=== PATIENT | male | born 1955 | race Caucasian/White ===

== ENCOUNTER 2017-01-21 03:48 | Emergency (ER) | payer OTHER ==
[~2017-01-21] VITALS: Ht 170.2 cm; Wt 88.0 kg
[2017-01-21 03:55] VITALS: TEMP 36.4; Ht 170.2 cm; Wt 88.0 kg
[2017-01-21] MEDS ORDERED: B/P MED PO (04:15)
[2017-01-21] MEDS ORDERED: ONDANSETRON INJ 2 MG/ML 2 ML VIAL IV STA (04:21)
--- NOTE | 2017-01-21 04:23 | EMERGENCY ROOM VISIT NOTE ---
History Report prepared by Ray: Tracy Bernard Under the Supervision of: Dr. Sami Mckenzie M.D. First contact with patient: 04:13 Chief Complaint: VOMITING Stated Complaint: VOMITING Nursing Triage Summary: vomitting intermittently since November History of Present Illness The patient is a 61 year old male who presents to the Emergency Room with complaints of intermittent vomiting beginning 2 months ago. He states that he has been throwing up every Monday. He complains of lower abdominal pain and lower right back pain. The patient denies having a rash. He reports that drinks 3-5 beers every day, but that he usually drinks heavier on the weekend. He denies that he experiences withdrawal, and also denies a history of abdominal surgery. Source of History: patient Onset: 2 months ago Position: other (global) Quality: other (vomiting) Timing: intermittent Associated Symptoms: + abdominal pain, + back pain, No rash Review of Systems See HPI for pertinent positives & negatives. A total of 10 systems reviewed and were otherwise negative. Past Medical & Surgical Medical Problems: (1) Aneurysm Family History FHx: cancer FHx: heart disease Hypertension Social History Smoking Status: Never Smoker Alcohol Use: heavy Current/Historical Medications Scheduled Omeprazole (Omeprazole), 1 TAB PO DIRECTED Ondasetron Odt (Zofran Odt), 4-8 MG SL Q6H [B/P Med], Unknown Dose PO DAILY Allergies Coded Allergies: No Known Allergies (Unverified , 01/21/17) Physical Exam Vital Signs Date Time Temp Pulse Resp B/P (MAP) Pulse Ox O2 Delivery O2 Flow Rate FiO2 01/21/17 07:24 66 18 110/71 98 01/21/17 06:17 64 18 108/74 97 Nasal Cannula 2.0 01/21/17 05:24 66 18 109/69 91 Room Air 01/21/17 04:48 61 18 106/63 94 Room Air 01/21/17 03:55 36.4 71 22 152/98 95 Room Air Physical Exam GENERAL: Patient is uncomfortable, nauseous, mildly intoxicated, and smells of alcohol HEENT: No acute trauma, normocephalic atraumatic, mucous membranes moist, no nasal congestion, no scleral icterus. NECK: No stridor, no adenopathy, no meningismus, trachea is midline. LUNGS: No dyspnea. Clear to auscultation and equal bilaterally. No wheeze, no rhonchi. HEART: Regular rate and rhythm. No murmurs, rubs, gallops appreciated. ABDOMEN: Soft, epigastric tenderness to palpation, bowel sounds positive, no masses appreciated, no peritonitis. BACK: No midline tenderness, no CVA tenderness EXTREMITIES: Normal motion all extremities, no cyanosis, no edema. NEUROLOGIC: Alert and oriented, no acute motor or sensory deficits, no focal weakness, cranial nerves grossly intact. SKIN: No rash, no jaundice, no diaphoresis. Medical Decision & Procedures Laboratory Results 01/21/17 04:40 Red Blood Count 4.18, Mean Corpuscular Volume 89.7, Mean Corpuscular Hemoglobin 31.1, Mean Corpuscular Hemoglobin Concent 34.7, Mean Platelet Volume 10.2, Neutrophils (%) (Auto) 73.6, Lymphocytes (%) (Auto) 17.0, Monocytes (%) (Auto) 8.4, Eosinophils (%) (Auto) 0.8, Basophils (%) (Auto) 0.1, Neutrophils # (Auto) 5.71, Lymphocytes # (Auto) 1.32, Monocytes # (Auto) 0.65, Eosinophils # (Auto) 0.06, Basophils # (Auto) 0.01 01/21/17 04:40 Test 01/21/17 04:40 01/21/17 04:45 01/21/17 06:45 White Blood Count 7.76 K/uL (4.8-10.8) Red Blood Count 4.18 M/uL (4.7-6.1) Hemoglobin 13.0 g/dL (14.0-18.0) Hematocrit 37.5 % (42-52) Mean Corpuscular Volume 89.7 fL (80-100) Mean Corpuscular Hemoglobin 31.1 pg (25-34) Mean Corpuscular Hemoglobin Concent 34.7 g/dl (32-36) Platelet Count 167 K/uL (130-400) Mean Platelet Volume 10.2 fL (7.4-10.4) Neutrophils (%) (Auto) 73.6 % Lymphocytes (%) (Auto) 17.0 % Monocytes (%) (Auto) 8.4 % Eosinophils (%) (Auto) 0.8 % Basophils (%) (Auto) 0.1 % Neutrophils # (Auto) 5.71 K/uL (1.4-6.5) Lymphocytes # (Auto) 1.32 K/uL (1.2-3.4) Monocytes # (Auto) 0.65 K/uL (0.11-0.59) Eosinophils # (Auto) 0.06 K/uL (0-0.5) Basophils # (Auto) 0.01 K/uL (0-0.2) RDW Standard Deviation 41.0 fL (36.4-46.3) RDW Coefficient of Variation 12.5 % (11.5-14.5) Immature Granulocyte % (Auto) 0.1 % Immature Granulocyte # (Auto) 0.01 K/uL (0.00-0.02) Est Creatinine Clear Calc Drug Dose 94.5 ml/min Estimated GFR () 108.2 Estimated GFR (Non- 93.4 BUN/Creatinine Ratio 22.2 (10-20) Calcium Level 8.3 mg/dl (8.5-10.1) Total Bilirubin 0.2 mg/dl (0.2-1) Direct Bilirubin < 0.1 mg/dl (0-0.2) Aspartate Amino Transf (AST/SGOT) 15 U/L (15-37) Alanine Aminotransferase (ALT/SGPT) 28 U/L (12-78) Alkaline Phosphatase 57 U/L (45-117) Total Protein 6.7 gm/dl (6.4-8.2) Albumin 3.7 gm/dl (3.4-5.0) Lipase 260 U/L (73-393) Bedside Hemoglobin 12.6 g/dl (14.0-18.0) Bedside Hematocrit 37 % (42-52) Bedside Sodium 139 mEq/L (135-144) Bedside Potassium 3.8 mEq/L (3.3-5.0) Bedside Chloride 104 mEq/L (101-112) Bedside Total CO2 23 mEq/l (24-31) Anion Gap 17.0 mmol/L (16-25) Bedside Blood Urea Nitrogen 19 mg/dl (7-18) Bedside Creatinine 1.0 mg/dl (0.6-1.3) Bedside Glucose (other) 114 mg/dl (70-99) Bedside Ionized Calcium (Janett) 1.21 mmol/l (1.12-1.32) Urine Color YELLOW Urine Appearance CLEAR (CLEAR) Urine pH 5.0 (4.5-7.5) Urine Specific [place] 1.023 (1.000-1.030) Urine Protein NEG (NEG) Urine Glucose (UA) NEG (NEG) Urine Ketones NEG (NEG) Urine Occult Blood 1+ (NEG) Urine Nitrite NEG (NEG) Urine Bilirubin NEG (NEG) Urine Urobilinogen NEG (NEG) Urine Leukocyte Esterase NEG (NEG) Urine WBC (Auto) 1-5 /hpf (0-5) Urine RBC (Auto) 0-4 /hpf (0-4) Urine Hyaline Casts (Auto) 0 /lpf (0-5) Urine Epithelial Cells (Auto) 0-5 /lpf (0-5) Urine Bacteria (Auto) NEG (NEG) Laboratory results as reviewed by me. Medications Administered Medications (Trade) Dose Ordered Sig/Matias Route Start Time Stop Time Status Last Admin Dose Admin Multivitamins 10 ml/Thiamine HCl 100 mg/Folic Acid 1 mg/Sodium Chloride 1,011.2 ml @ 500 mls/ hr Q2H2M ONCE IV 01/21/17 04:30 01/21/17 06:31 DC 01/21/17 05:18 500 MLS/HR Ondansetron HCl (Zofran Inj) 4 mg NOW STAT IV 01/21/17 04:21 01/21/17 04:23 DC 01/21/17 04:42 4 MG Morphine Sulfate (MoRPHine SULFATE INJ) 6 mg NOW STAT IV 01/21/17 04:28 01/21/17 04:29 DC 01/21/17 04:42 6 MG Ranitidine HCl (zANTac SYRUP) 150 mg NOW ONCE PO 01/21/17 06:00 01/21/17 06:01 DC 01/21/17 05:53 150 MG Al Hydroxide/Mg Hydroxide (Maalox Susp) 30 ml STK-MED ONCE .ROUTE 01/21/17 05:51 01/21/17 05:52 DC 01/21/17 05:54 30 ML Lidocaine HCl (Viscous Lidocaine 2% Soln) 20 ml STK-MED ONCE .ROUTE 01/21/17 05:52 01/21/17 05:53 DC 01/21/17 05:53 20 ML ED Course 0417: The patient was evaluated in room A9A. A complete history and physical exam was performed. 0421: Ordered Zofran Inj 4 mg IV. 0428: Ordered Morphine Sulfate 6 mg IV. 0430: Ordered Multivitamins 10 ml/Thiamine HCl 100 mg / Folic Acid 1 mg/Sodium Chloride 1,011.2 ml @ 500 mls/hr IV. Medical Decision Differential: Appendicitis, Diverticulitis, PUD/Gastritis, Biliary Pathology, UTI, Pyelonephritis, Renal Colic, Bowel Obstruction, Aortic Pathology, Acute Coronary Syndrome, amongst other pathologies entertained. 61 yr old male with 2 month history of periodic diffuse though mostly epigastric abdominal pain radiating to back which when really bad he vomits. Notes worse on Monday evenings after drinking heavily on Mon/Mon. Chronic Etoh use though no history of withdrawal. Notes usually eats well. Labs unremarkable. No chest, shob, nor other ACS symptoms. With symptoms ongoing for so long felt that imaging necessary which was fortunately negative. CT with read of contrast most likely in ureters. Just 1+ blood in urine and thus I do not feel this is diffuse ureteral stones give no history of them and no reported hydro. I suspect main issue is gastritis/ulcer related given daily Etoh usage. Reviewed instructions regarding this, will start Omeprazole and have stressed PCP follow up. RTED if worsening or other concerns. Medication Reconcilliation Current Medication List: was personally reviewed by me Blood Pressure Screening Patient's blood pressure: Normal blood pressure Impression Primary Impression: Vomiting Additional Impression: Abdominal pain, diffuse Scribe Attestation The scribe's documentation has been prepared under my direction and personally reviewed by me in its entirety. I confirm that the note above accurately reflects all work, treatment, procedures, and medical decision making performed by me. Departure Information Dispostion Home / Self-Care Prescriptions Omeprazole (OMEPRAZOLE) 20 Mg Tab 1 TAB PO DIRECTED, #60 TAB 3 Refills Take twice daily for 10 days, then once daily. Prov: Sami Mckenzie M.D. 01/21/17 Ondasetron Odt (ZOFRAN ODT) 4 Mg Tab 4-8 MG SL Q6H for Nausea, #20 TAB Prov: Sami Mckenzie M.D. 01/21/17 Referrals Primary Care Provider Patient Instructions Abdominal Pain - [facility], [facility] Additional Instructions It is unclear exact cause of your pain though likely it is secondary to Gastric ulcer or irritation. Avoid spicy foods, alcohol, tomato based foods and caffeine. Return if worsening pain, fevers, chest pain, or other concerns. We are always here to help. Please follow up with your primary care provider to discuss further testing, including repeat Urine testing, and possible further Gallbladder testing and or construction checker evaluation. You do have blood in your urine, though otherwise there is no clear evidence of urinary infection nor kidney stone. Problem Qualifiers
[2017-01-21] MEDS ORDERED: MoRPHine SULFATE 10 MG/ML CARP/VIAL IV STA (04:28)
[2017-01-21] MEDS ORDERED: OPTIRAY 320 IV PRN (04:30)
[2017-01-21] MEDS ORDERED: MULTI-VITAMIN INFUSION INJ 10 ML, THIAMINE HCL INJ 100 MG, FoLIC ACID INJ 1 MG in SODIU... IV ONE (04:30)
[2017-01-21 04:58] LABS: ISTAT HEMOGLOBIN 12.6 g/dl (14.0-18.0); ISTAT IONIZED CALCIUM 1.21 mmol/l (1.12-1.32)
[2017-01-21 05:07] LABS: BASO % 0.1 %; BASO ABS # 0.01 K/uL (0-0.2); COMPLETE YES; EOS % 0.8 %; HEMATOCRIT 37.5 % (42-52); IG% 0.1 %; LYMPH ABS # 1.32 K/uL (1.2-3.4); MEAN CELL VOLUME 89.7 fL (80-100); MEAN CORPUSCULAR HEMOGLOBIN 31.1 pg (25-34); MEAN CORPUSCULAR HGB CONC 34.7 g/dl (32-36); MEAN PLATELET VOLUME 10.2 fL (7.4-10.4); MONO % 8.4 %; NEUT % 73.6 %; PLATELET COUNT 167 K/uL (130-400); RED BLOOD COUNT 4.18 M/uL (4.7-6.1); WHITE BLOOD COUNT 7.76 K/uL (4.8-10.8)
[2017-01-21 05:24] LABS: ALT/SGPT 28 U/L (12-78); AST/SGOT 15 U/L (15-37); BLOOD UREA NITROGEN 20 mg/dl (7-18); BUN/CREATININE RATIO 22.2 (10-20); CALCIUM 8.3 mg/dl (8.5-10.1); CARBON DIOXIDE 23 mmol/L (21-32); CHLORIDE 107 mmol/L (98-107); CREATININE 0.88 mg/dl (0.60-1.40); GLUCOSE 114 mg/dl (70-99); POTASSIUM 3.8 mmol/L (3.5-5.1); SODIUM 139 mmol/L (136-145)
[2017-01-21 05:27] LABS: ALKALINE PHOSPHATASE 57 U/L (45-117)
[2017-01-21] MEDS ORDERED: GI COCKTAIL PO STA (05:49)
[2017-01-21] MEDS ORDERED: ALUMINUM/MAGNESIUM SUSP 30 ML UDC ONE (05:51)
[2017-01-21] MEDS ORDERED: LIDOCAINE HCL 2% VISC SOLN 20 ML UDC ONE (05:52)
[2017-01-21] MEDS ORDERED: RANITIDINE HCL SYRUP 150 MG/10 ML UDC PO ONE (06:00)
[2017-01-21] MEDS ORDERED: OMEP20TA PO (06:47)
[2017-01-21] MEDS ORDERED: ONDA4TAB10 SL (06:47)
[2017-01-21 06:55] LABS: URINE APPEARANCE CLEAR (CLEAR); URINE BILIRUBIN NEG (NEG); URINE COLOR YELLOW; URINE EPITHELIAL CELL AUTO 0-5 /lpf (0-5); URINE NITRITE NEG (NEG); URINE SPECIFIC GRAVITY 1.023 (1.000-1.030); UROBILINOGEN NEG (NEG); ZZUR CULT IF INDIC CLEAN CATCH NO
[2017-01-21 06:58] LABS: MANUAL MICROSCOPIC REQUIRED? NO; REVIEW REQ? NO
[2017-01-21 07:24] VITALS: BP 110/71; PULSE 66; O2SAT 98
--- NOTE | 2017-01-21 09:40 | DIAGNOSTIC IMAGING REPORT ---
ABD/PELVIS IV CONTRAST ONLY HISTORY: 61 years-old Male epigastric pain radiating to back acute epigastric abdominal pain with radiation to the back. COMPARISON: None available TECHNIQUE: Multiple axial CT images of the abdomen and pelvis were obtained following the intravenous administration of 94 mL Optiray 320. A dose lowering technique was used consistent with the principals of LILIAN. FINDINGS: Mild dependent bibasilar atelectasis. There is no pneumoperitoneum. Coronary arterial calcifications are noted. The heart is mildly enlarged. The liver, gallbladder, spleen, pancreas and adrenal glands are within normal limits. Renal sinus cysts are seen on the left. Scattered low attenuating lesions of the right kidney parenchyma are too small to characterize however suggest cysts. Nonspecific mild right greater than left perinephric inflammatory stranding is noted. There is slightly decreased contrast enhancement of the right kidney compared to the left on this delayed phase. External renal pelvis is present on the right with mixing of contrast and urine within the right renal pelvis. There is mild prominence of the mid to distal right ureter with mild surrounding stranding. No obstructing stone or mass identified. Increased attenuation within the region of the distal left ureter and left UVJ suggests contrast. There is circumferential wall thickening of the bladder. Prostate is unremarkable. Small fat filled left inguinal hernia. Mild arthritic carotid plaquing of the abdominal aorta. No bulky adenopathy. Moderate sized duodenal diverticulum. No bowel obstruction. Colonic diverticulosis without diverticulitis. Transverse colon is collapsed without inflammatory changes identified. The appendix appears normal. Soft tissues are unremarkable. Bones appear intact. Multilevel severe facet arthropathy of the lower lumbar spine. Severe intervertebral disc space narrowing at L5-S1. IMPRESSION: 1. Mildly decreased contrast enhancement of the right kidney with associated perinephric inflammatory stranding of the kidney and right ureter is suspicious for polynephritis with ascending ureteritis. Wall thickening of the urinary bladder is suspicious for cystitis. Correlate with urinalysis. 2. No obstructing renal calculi identified. 3. Normal appendix. 4. Colonic diverticulosis without diverticulitis. The above report was generated using voice recognition software. It may contain grammatical, syntax or spelling errors. Electronically signed by: Norberto Shaikh M.D. 01/21/2017 9:38 AM Dictated Date/Time: 01/21/2017 9:32 AM
== END 2017-01-21 07:25 | disposition home or self-care (01) ==
LOC: C.EDB 03:50 → C.EDA 07:25
DX: R11.10 Vomiting, unspecified (principal); R10.9 Unspecified abdominal pain; Z80.9 Family history of malignant neoplasm, unspecified; Z82.49 Family history of ischemic heart disease and other diseases of the circulatory system; Z79.899 Other long term (current) drug therapy

== ENCOUNTER → 2017-02-23 | Outpatient (CLI) | payer OTHER ==
[~2017-02-23] MED LIST: B/P MED PO; OMEP20TA PO; ONDA4TAB10 SL; SINCALIDE INJ 1.8 MCG in SODIUM CHLORIDE 0.9% 100ML 100 ML IV SCH
--- NOTE | 2017-02-23 10:08 | DIAGNOSTIC IMAGING REPORT ---
HEPATOBILIARY EF IMAGING CLINICAL HISTORY: 61 years-old Male with R10.11. Acute epigastric abdominal pain TECHNIQUE: Following the intravenous administration of 5.3 mCi of technetium-99m Choletec, sequential abdominal images were obtained. In order to evaluate the contractile response of the gallbladder, 1.8 mcg of Kinevac was administered by slow intravenous infusion over 30 min starting approximately 60 min after the administration of the radiopharmaceutical. Sequential imaging was continued for 45 min after the start of the Kinevac infusion. COMPARISON: CT abdomen and pelvis 01/21/2017 FINDINGS: There is prompt, uniform accumulation of the tracer by the liver. There is normal filling of the intrahepatic ducts, common bile duct and gallbladder and normal excretion of the tracer into the duodenum. There is adequate contraction of the gallbladder. The calculated gallbladder ejection fraction is 86% (normal >40%). There is no significant enterogastric reflux. IMPRESSION: 1. Normal contractile response of the gallbladder to Kinevac infusion. 2. Normal biliary imaging study. The above report was generated using voice recognition software. It may contain grammatical, syntax or spelling errors. Electronically signed by: Norberto Shaikh M.D. 02/23/2017 10:07 AM Dictated Date/Time: 02/23/2017 10:04 AM
== END | disposition home or self-care (01) ==
LOC: C.NUCL 07:30
PROVIDERS: ATTEND Physician Assistant Medical
DX: R10.11 Right upper quadrant pain (principal)